=== PATIENT | female | born 1975 | race Caucasian/White ===

== ENCOUNTER 2021-09-30 08:03 | Outpatient (CLI) | payer BC, SELFPAY ==
--- NOTE | 2021-09-30 08:15 | MR_ITS ---
[address] [address] Phone:?[phone] Fax:?[phone] Referring Physician Information: Dee Meyer M.D. [address] [facility] [address] Phone:?[phone] Fax:?[phone] Patient:?Maggi Burrell D.O.B:?1975 Sex:?Female Phone:?[phone] [facility] MRN:?[id number] Exam Date:?09/30/2021 ? EXAM: MRI of the LEFT KNEE, without contrast CLINICAL HISTORY: Left knee pain and sensation of instability. COMPARISONS: None available. TECHNICAL: MR sequences of the left knee: sagittals: PD, PDFS coronals: PD, STIR axials: PD, T2 FS CONTRAST: None SEDATION: None FINDINGS: Bones: No fracture or destructive osseous lesion is seen. 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 Retinacula: The medial and lateral retinacula are intact. Fat pads: The infrapatellar, quadriceps, and prefemoral fat pads are unremarkable. Knee joint: Effusion: Physiologic amount of joint fluid. Popliteal cyst: Tiny popliteal cyst. Intra-articular bodies: None. Medial compartment: Medial meniscus: Intact. Cartilage: Approximately 2.0 cm in AP dimension by 1.0 cm in transverse dimension area of full-thickness chondromalacia over the mid weightbearing portion of the medial femoral condyle with subjacent degenerative subchondral edema-like signal. Lateral compartment: Lateral meniscus: Intact. Cartilage: Intact. Ligaments: Anterior cruciate ligament: Intact. Posterior cruciate ligament: Intact. Medial collateral ligament: Intact. Posterior oblique ligament: Intact. Fibular collateral ligament: Intact. Posterolateral corner: The distal biceps femoris tendon, iliotibial band, popliteus tendon, popliteus muscle, popliteofibular ligament, and arcuate ligament are intact. Posteromedial corner: The semimembranosus and pes anserine tendons are intact. Extensor mechanism: Patellar tendon: Intact. Quadriceps tendon: Intact, without tendinopathy. IMPRESSION: 1. Approximately 2.0 x 1.0 cm area of full-thickness chondromalacia over the mid weightbearing portion of the medial femoral condyle with subjacent degenerative subchondral edema-like signal. 2. Approximately 0.8 x 0.8 cm area of full-thickness chondromalacia over the medial patellar facet with subjacent degenerative subchondral cystic changes. 3. Tiny popliteal cyst. 4. No ligamentous injury or meniscal tear of the left knee. RCB Electronically signed on 09/30/2021 12:08:00 PM by Ba Guadarrama M.D.
== END 2021-09-30 08:04 | disposition home or self-care (01) ==
LOC: MRI 08:04
PROVIDERS: PCP Family Medicine; Visit Provider Family Medicine
DX: M25.562 Pain in left knee (principal); M71.22 Synovial cyst of popliteal space [Baker], left knee; M94.262 Chondromalacia, left knee; M22.42 Chondromalacia patellae, left knee
CPT/HCPCS: 73721

== ENCOUNTER 2022-05-11 10:50 | Outpatient (CLI) | payer BC, SELFPAY ==
--- NOTE | 2022-05-11 11:00 | CRLHL7_ITS ---
For Patients: As a result of the Century Cures Act, medical imaging exams and procedure reports are released immediately into your electronic medical record. You may view this report before your referring provider. If you have questions, please contact your health care provider. CLINICAL HISTORY: PELVIC PAIN TECHNIQUE: 2D esteves scale ultrasound. In addition color Doppler and spectral Doppler analysis was performed of the pelvis using a transabdominal and transvaginal approach. Comparison 05/28/2019 FINDINGS: On transvaginal imaging, the myometrium has a normal uniform echotexture. The uterus measures 9.0 x 5.4 x 6.1 cm. The endometrial lining measures 15 mm in thickness. The right ovary measures 2.8 x 1.0 x 1.8 cm in size and the left ovary measures 3.7 x 1.6 x 1.7 cm. The ovaries demonstrate normal arterial and venous blood flow on color Doppler and spectral Doppler analysis. Hypoechoic left ovarian cyst measuring 2.1 x 1.4 x 2.0 cm. Mild pelvic free fluid. IMPRESSION: 2.1 cm hemorrhagic left ovarian cyst with mild pelvic free fluid. No ovarian torsion or uterine fibroid. Dictated by Srikanth Hooker MD @ 05/11/2022 12:54:48 PM (Electronically Signed)
== END 2022-05-11 10:51 | disposition home or self-care (01) ==
LOC: US 10:51
PROVIDERS: PCP Family Medicine; Visit Provider Obstetrics & Gynecology
DX: R10.2 Pelvic and perineal pain (principal); N83.202 Unspecified ovarian cyst, left side
CPT/HCPCS: 76830; 76856; 93976

== ENCOUNTER 2022-10-02 08:51 | Outpatient (CLI) | payer BC, SELFPAY | END 2022-10-02 08:52 | disposition home or self-care (01) | PROVIDERS: PCP Nurse Practitioner Family; Visit Provider Nurse Practitioner Family | DX: E55.9 Vitamin D deficiency, unspecified (principal); Z13.6 Encounter for screening for cardiovascular disorders; Z13.1 Encounter for screening for diabetes mellitus | CPT/HCPCS: 80048; 80061 ==

== ENCOUNTER 2022-10-10 10:29 | Outpatient (CLI) | payer BC, SELFPAY ==
--- NOTE | 2022-10-10 11:00 | CRLHL7_ITS ---
For Patients: As a result of the Century Cures Act, medical imaging exams and procedure reports are released immediately into your electronic medical record. You may view this report before your referring provider. If you have questions, please contact your health care provider. Indication: RLQ PAIN Technique: Postcontrast CT abdomen and pelvis. 69 cc Isovue 370 intravenous contrast. Please note that all CT scans at this facility use dose modulation, iterative reconstruction, and/or weight-based dosing when appropriate to reduce radiation dose to as low as reasonably achievable. Comparison: Pelvic ultrasound 05/11/2022 Findings: Uterus appears normal. Normal left ovary. There is a right ovarian cyst measuring 1.8 cm. Mild-moderate pelvic free fluid is present. Normal bladder. No bowel obstruction or free air. No abscess. No evidence of appendicitis. Terminal ileum normal. No inflammatory bowel disease. No adenopathy. Normal pancreas and spleen. Normal adrenal glands and kidneys. Gallbladder incompletely distended. No stigmata of cirrhosis. No intrahepatic mass. Lung bases clear. Normal osseous structures. Impression: No bowel obstruction or inflammatory changes. Retroflexed uterus without uterine fibroid. Mild-moderate pelvic free fluid. 1.8 cm right ovarian cyst. No hernia or adenopathy. No renal stone. Gallbladder incompletely distended. No biliary obstruction. Please note that all CT scans at this facility use dose modulation, iterative reconstruction, and/or weight-based dosing when appropriate to reduce radiation dose to as low as reasonably achievable. Dictated by Srikanth Hooker MD @ 10/11/2022 10:49:37 AM (Electronically Signed)
== END 2022-10-10 10:30 | disposition home or self-care (01) ==
LOC: CT 10:30
PROVIDERS: PCP Nurse Practitioner Family; Visit Provider Nurse Practitioner Family
DX: R10.31 Right lower quadrant pain (principal); N83.201 Unspecified ovarian cyst, right side
CPT/HCPCS: 74177; Q9967

== ENCOUNTER 2023-03-28 08:48 | Outpatient (CLI) | payer BC, SELFPAY ==
--- OUTSIDE RECORDS SUMMARY | 2023-03-28 08:53 | XMS_ITS | Referral Summary ---
Author Name Unknown Organization [facility] Address [address] [place] [address] Care Team Providers Care Manager Of Applications Development Name Role Phone Dee Meyer M.D. Primary Care Provider [phone] Source Comments Patient records contain information from all sites at [facility]. For routine questions regarding patient records, call [phone] during business hours, M-F 8:00 AM - 5:00 PM Central Time. Record requests for emergency care only can be directed to [phone] at any time.[facility] Encounters Date Type Department Care Team Description 03/06/2023 9:00 AM BLOOD BANK COORDINATOR - 03/06/2023 11:59 PM BLOOD BANK COORDINATOR Hospital Encounter Department of Laboratory Medicine in [address] [phone] Bin Stearns M.D. Screening Lipid Discharge Disposition: Home or Self Care 01/19/2023 Clinical Communication Department of Family Medicine, [facility], in [address] [address] Bin Stearns M.D. order request 01/19/2023 Clinical Communication Department of Family Medicine, [facility], in [address] [address] Bin Stearns M.D. from Last 3 Months Allergies Active Allergy Reactions Criticality Noted Date Comments Sulfa (Sulfonamide Antibiotics) Other (see comments) 11/08/2012 cerner did not list a reaction Medications Medication Sig Dispensed Refills Start Date End Date Status zinc sulfate (Zinc-220) 220 (50) mg capsule 0 09/22/2019 Active ascorbic acid, vitamin C, (ascorbic acid with sakshi hips) 500 mg tablet Take 500 mg by mouth daily. 0 Active UNABLE TO FIND Med Name: Does take some maldivian herbs. 0 Active cholecalciferol (Vitamin D3) 50 mcg (2,000 Unit) tablet Take 50 mcg by mouth daily. Taking 4,000 units. 0 Active fluticasone propionate (FLONASE) 50 mcg/actuation nasal sprayIndications:Dr eran Vigil Nasal Administer 2 sprays into each nostril daily. 48 g 3 02/13/2020 Active Additional Information Patient taking differently:2 spray each nostrilAs needed, Informant: Self, Reported on 06/17/2020 cetirizine (ZyrTEC) 10 mg tablet Take 1 tablet (10 mg total) by mouth at bedtime. 30 tablet 5 03/01/2020 Active Additional Information Patient taking differently:10 mg oralAs needed, Informant: Self, Reported on 06/17/2020 multivitamin (multivitamin) tablet Take 1 tablet by mouth daily. 0 Active Lactobacillus acidophilus capsule Take 1 capsule by mouth 2 (two) times a day with meals. 0 Active acetylcysteine (NAC) 600 mg capsule Take 600 mg by mouth 2 (two) times a day. 0 Active polyethylene glycol (MIRALAX) 17 gram/dose oral powder Drink 1st portion of prep at 6 PM the evening before. 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 Lipoma 05/24/2020 Overview: Added automatically from request for surgery [id number] Gastroesophageal Reflux Disease 01/23/2020 Overview: Added automatically from request for surgery [id number] Tinnitus Bilateral 09/30/2014 Herpesviral Infection Unspecified 12/19/2013 Anxiety Generalized Disorder 05/03/2013 Overview: Generalized anxiety disorder Migraine Headache 11/26/2009 Overview: Overview: Neurology consult 06/2009 Pain Knee Left Immunizations Name Administration Dates Next Due Influenza (IM) Preservative Free 11/18/2012 Influenza Laiv (Nasal) (Discontinued) 11/11/2014 Influenza, Injectable, Quadrivalent 11/17/2019,1 Influenza, Seasonal, Injectable 12/04/19 12,11/16/2010,11/19/2009,2008,04/05/2007 Influenza, Unspecified 11/18/2019,11/12/2015, SARS-COV-2 (COVID-19) - PFIZ ER (Discontinued)(12 years or older) 05/31/2020,05/05/2020 Td (Adult), adsorbed 11/01/2016 Tdap 05/20/2008 influenza LAIV (Nasal) (2 ye ars through 49 years) 11/11/2014,11/18/2013 influenza vaccine (FLUBLOK) (18 years or older) (PF) 11/13/2018 influenza vaccine quad (FLUZONE/FLUARIX) (6 months and older)(PF) 12/03/2020,11/13/2017 Social History Tobacco Use Types Packs/Day Years Used Date Smoking Tobacco: Never Smokeless Tobacco: Never Alcohol Use Standard Drinks/Week Comments Not Currently 0 (1 standard drink = 0.6 oz pur e alcohol) Humiliation, Afraid, Rape, and Kick questionnair e Answer Date Recorded Within the last year, have y ou been afraid of your partner or ex-partner? No 02/10/2021 Within the last year, have y ou been humiliated or emotionally abused in other ways by your partner or ex-partner? No Within the last year, have y ou been kicked, hit, slapped, or otherwise physically hurt by your partner or ex-partner? No 02/10/2021 Within the last year, have y ou been raped or forced to have any kind of sexual activity by your partner or ex-partner? No 02/10/2021 Social Connection and Isolat ion Panel [NHANES] Answer Date Recorded In a typical week, how many times do you talk on the phone with family, friends, or neighbors? More than three times a week 02/10/2021 How often do you get togethe r with friends or relatives? Once a week 02/10/2021 How often do you attend chur ch or confucianist services? Patient declined 02/10/2021 Do you belong to any clubs o r organizations such as mosque groups, unions, fraternal or athletic groups, or school groups? Yes 02/10/2021 How often do you attend meet ings of the clubs or organizations you belong to? 1 to 4 times per year 02/10/2021 Are you , , di vorced, , never , or living with a partner? 02/10/2021 AUDIT-C Answer Date Recorded Q1: How often do you have a drink containing alc ohol? Never 02/10/2021 Average Number of Drinks Not on file 022 Frequency of Binge Drinking Not on file 07/2021 Overall Financial Resource Strain (CARDIA) Answe r Date Recorded How hard is it for you to pa y for the very basics like food, housing, medical care, and heating? Patient declined 12/26/2022 PHQ-2 Answer Date Recorded PHQ-2 Score 0 02/10/2021 [facility] - Occupational Stress Questionnaire Answer Date Recorded Do you feel stress - tense, restless, nervous, or anxious, or unable to sleep at night because your mind is troubled all the time - these days? Not at all 02/10/2021 Exercise Vital Sign Answer Date Recorde d On average, how many days pe r week do you engage in moderate to strenuous exercise (like a brisk walk)? Patient declined On average, how many minutes do you engage in exercise at this level? Patient declined 12/26/2022 Hunger Vital Sign Answer Date Recorded Within the past 12 months, y ou worried that your food would run out before you got the money to buy more. Patient declined Within the past 12 months, t he food you bought just didn't last and you didn't have money to get more. Patient declined PRAPARE - Transportation Answer Date Re corded In the past 12 months, has l ack of transportation kept you from medical appointments or from getting medications? No 12/07 In the past 12 months, has l ack of transportation kept you from meetings, work, or from getting things needed for daily living? No 12/26/2022 Nutrition Answer Date Recorded Nutrition: EVOO Fat Source Yes 12/26 On average, how many serving s of fruits and vegetables do you eat per day (serving size is equal to 1 cup or approximately the size of a tennis ball)? 0-2 12/26/2022 Dental Answer Date Recorded Dental: Regular Dentist Yes 04/01/19 Employment Answer Date Recorded Employment status Unemployed/not in e paid workforce and NOT seeking employment 12/26/2022 Housing Stability Answer Date Recorded What is your living situation today? I have a [facility] place to live 12/26/2022 Education Answer Date Recorded What is the highest level of school you have completed or the highest degree you have received? Bachelor's degree (e.g., BA, AB, BS) 10/15/2019 Sex and Gender Information Value Date Recorded Sex Assigned at Female 12/17/2016 10:20 PM BLOOD BANK COORDINATOR Gender Identity Female 12/17/2016 10:20 PM BLOOD BANK COORDINATOR Sexual Orientation Straight 12/17/2016 10 :20 PM BLOOD BANK COORDINATOR Last Filed Vital Signs Vital Sign Reading Time Taken Comments Blood Pressure 110/73 02/10/2021 1:22 PM BLOOD BANK COORDINATOR Pulse 75 02/10/2021 1:22 PM BLOOD BANK COORDINATOR Temperature 36.6 ??C (97.9 ??F) 02/10/2021 1:22 PM CS T Respiratory Rate 14 06/18/2020 9:00 AM CDT Oxygen Saturation 99% 02/10/2021 1:22 PM BLOOD BANK COORDINATOR Inhaled Oxygen Concentration - - Weight 63 kg (138 lb 12.8 oz) 02/10/2021 1:22 PM BLOOD BANK COORDINATOR Height 157.5 cm (5' 2.01) 06/18/2020 7:36 AM CD T Body Mass Index 25.38 06/18/2020 7:36 AM CDT Plan of Treatment Not on file Procedures Procedure Name Priority Date/Time Associated Diagnosis Comments LIPID PANEL, S Routine 03/06/2023 9:11 AM BLOOD BANK COORDINATOR Screening Lipid from Last 3 Months Results * (ABNORMAL) Lipid Panel (03/06/2023 9:11 AM [facility]) Triglycerides 70 mg/dL 03/06/2023 9:37 AM [facility] Comment: ----REFERENCE VALUE---- Normal: <150 mg/dL Borderline High: 150-199 mg/dL High: 200-499 mg/dL Very High: > or =500 mg/dL Cholesterol, Total 250(H) mg/dL 2023 9:37 AM [facility] Comment: ----REFERENCE VALUE---- Desirable: < 200 mg/dL Borderline High: 200 - 239 mg/dL High: > or = 240 mg/dL Cholesterol, LDL, Calculated 148(H) mg/dL 03/06/2023 9:37 AM [facility] Comment: ----REFERENCE VALUE---- Desirable: <100 mg/dL Above Desirable: 100-129 mg/dL Borderline High: 130-159 mg/dL High: 160-189 mg/dL Very High: >=190 mg/dL ----ADDITIONAL INFORMATION---- LDL cholesterol calculated using the [place]/NIH equation. Cholesterol, HDL 90 >=50 mg/dL 03/06/19 9:37 AM [facility] Cholesterol, Non-HDL, Calculated 160(H) mg/dL 03/06/2023 9:37 AM [facility] Comment: ----REFERENCE VALUE---- Desirable: <130 mg/dL Above Desirable: 130-159 mg/dL Borderline High: 160-189 mg/dL High: 190-219 mg/dL Very High: > or =220 mg/dL Fasting (8 HR or more) Yes 03/06/2023 9:14 AM [facility] Blood (Blood, Venous) 03/06/2023 9:11 AM BLOOD BANK COORDINATOR 03/06/2023 9:14 AM [facility] Bin Stearns M.D. LAB BLOOD ADD-ON Performing Organization Address City/State/[place] Co de Phone Number [facility]- [address] [address], [facility] in [address] [place] [address] from Last 3 Months Advance Directives For more information, please contact: [phone] Latest Code Status on File Code Status Date Activated Date Inactivated Comments Full Code 06/18/2020 7:05 AM 06/18/2020 12:17 PM Question Answer Comments Full Code: Discussed Code Status History Code Status Date Activated Date Inactivated Comments Full Code 01/29/2020 11:25 AM 01/29/2020 2:49 PM Question Answer Comments Full Code: Discussed Care Teams Manager Of Applications Development Relationship Specialty Start Date End Date Dee Meyer M.D. [address] [place] [address] [place] [id number] PCP - General Family Medicine 01/19/23
--- OUTSIDE RECORDS SUMMARY | 2023-03-28 08:53 | XMS_ITS ---
Author Name Unknown Organization [facility] Address [address] [place] [address] Care Team Providers Care Internal Corrosion Specialist Name Role Phone Unavailable Unavailable Unavailable Surgery Details Not on file Complications Check Surgery Details section. Procedure Estimated Blood Loss Check Surgery Details section. Procedure Findings Check Surgery Details section. Procedure Specimens Taken Check Surgery Details section.
--- OUTSIDE RECORDS SUMMARY | 2023-03-28 08:53 | XMS_ITS | Clinical Summary ---
Author Name Unknown Organization [facility] Address [address] [place] [address] Care Team Providers Care Thermodynamics Professor Name Role Phone Dee Meyer M.D. Primary Care Provider Source Comments Patient records contain information from all sites at [facility]. For routine questions regarding patient records, call [phone] during business hours, M-F 8:00 AM - 5:00 PM Central Time. Record requests for emergency care only can be directed to [phone] at any time.[facility] Allergies Active Allergy Reactions Criticality Noted Date Comments Sulfa (Sulfonamide Antibiotics) Other (see comments) 11/08/2012 mariaelenaner did not list a reaction Medications Medication Sig Dispensed Refills Start Date End Date Status zinc sulfate (Zinc-220) 220 (50) mg capsule 0 09/22/2019 Active ascorbic acid, vitamin C, (ascorbic acid with sakshi hips) 500 mg tablet Take 500 mg by mouth daily. 0 Active UNABLE TO FIND Med Name: Does take some micronesian herbs. 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 Lipoma 05/24/2020 Overview: Added automatically from request for surgery [id number] Gastroesophageal Reflux Disease 01/23/2020 Overview: Added automatically from request for surgery [id number] Tinnitus Bilateral 09/30/2014 Herpesviral Infection Unspecified 12/19/2013 Anxiety Generalized Disorder 05/03/2013 Overview: Generalized anxiety disorder Migraine Headache 11/26/2009 Overview: Overview: Neurology consult 06/2009 Pain Knee Left Encounters Date Type Department Care Team Description 03/06/2023 9:00 AM PAPER RULER - 03/06/2023 11:59 PM PAPER RULER Hospital Encounter Department of Laboratory Medicine in [address] [phone] Bin Stearns M.D. Screening Lipid Discharge Disposition: Home or Self Care 01/19/2023 Clinical Communication Department of [facility], [facility], [address] [phone] Bin Stearns M.D. order request 01/19/2023 Clinical Communication Department of Family Medicine, [facility], in [address] [phone] Bin Stearns M.D. from Last 3 Months Immunizations Name Administration Dates Next Due Influenza [...] quad (FLUZONE/FLUARIX) (6 months and older)(PF) 12/03/2020,11/13/2017 Family History Medical History Relation Name Comments Depression Brother Hypothyroidism Brother Atrial fibrillation Father Coronary artery disease Father Hypothyroidism Mother Osteoarthritis Mother Breast cancer Mother's Sister Anxiety disorder Sister Depression Sister Hypothyroidism Sister Relation Name Status Comments Brother Father Mother Mother's Sister Sister Social History Tobacco Use Types Packs/Day Years [...] 02/10/2021 How often do you attend chur or orthodox services? Patient declined 02/10/2021 Do you belong to any clubs o r organizations such as episcopalian groups, unions, fraternal or athletic groups, or [...] Answer Date Recorded PHQ-2 Score 0 02/10/2021 [facility] - Occupational [...] your living situation today? I have a [facility] place to live 12/26/2022 Education Answer Date Recorded What is the highest level of school you have completed or the highest degree you have received? Bachelor's degree (e.g., BA, AB, BS) 10/15/2019 Sex and Gender Information Value Date Recorded Sex Assigned at Female 12/17/2016 10:20 PM PAPER RULER Gender Identity Female 12/17/2016 10:20 PM PAPER RULER Sexual Orientation Straight 12/17/2016 10 :20 PM PAPER RULER Last Filed Vital Signs Vital Sign Reading Time Taken Comments Blood Pressure 110/73 02/10/2021 1:22 PM PAPER RULER Pulse 75 02/10/2021 1:22 PM PAPER RULER Temperature 36.6 ??C (97.9 ??F) 02/10/2021 1:22 PM CS T Respiratory Rate 14 06/18/2020 9:00 AM CDT Oxygen Saturation 99% 02/10/2021 1:22 PM PAPER RULER Inhaled Oxygen Concentration - - Weight 63 kg (138 lb 12.8 oz) 02/10/2021 1:22 PM PAPER RULER Height 157.5 cm (5' 2.01) 06/18/2020 7:36 AM CD T Body Mass Index 25.38 06/18/2020 7:36 AM CDT Plan of Treatment Health Maintenance Due Date Last Done Comments CT Colonography 1976 Cologuard 1976 Colonoscopy 1976 Colorectal Cancer Screening 1976 FIT 1976 Hepatitis B Vaccines (1 of 3 - 3-dose series) 1976 Hepatitis C Screening 1976 COVID-19 Vaccine (3 - season) 2022 05/31/2020, 05/05/2020 Gastroscopy (upper endoscopy) 01/28/2023 01/29/2020 Depression Screening (Annual PHQ-2) 02/05/2023 Fasting Glucose for Diabetes Screening 06/18/2023 06/17/2020, 06/17/2014 Mammogram 12/23/2023 12/22/2022, 12/06, 12/20/2020, Additional history exists Lipid (Cholesterol) Screening 03/06/2024 03/06/2023, 08/10/2021, 12/29/2015, Additional history exists Cervical Cancer Screening 11/14/20242021, 04/10/2018, 04/10/2018, Additional history exists DTaP,Tdap,and Td Vaccines (3 - Td or Tdap) 11/01/2026 11/01/2016, 05/20/2008 HIV Screening Addressed 05/12/2011 (Perf ormed elsewhere) Overridden with the intention of not completing the topic Influenza Vaccine Completed 12/16/2022, , 11/18/2019, Additional history exists Pneumococcal vaccine (0-64 years) Aged Out No longer eligible b ased on patient's age to complete this topic Procedures Procedure Name Priority Date/Time Associated Diagnosis Comments LIPID PANEL, S Routine 03/06/2023 9:11 AM PAPER RULER Screening Lipid from Last 3 Months Results * (ABNORMAL) Lipid Panel (03/06/2023 9:11 AM PAPER RULER) Triglycerides 70 mg/dL 03/06/2023 9:37 AM PAPER RULER [facility] Comment: ----REFERENCE VALUE---- Normal: <150 mg/dL Borderline High: 150-199 mg/dL High: 200-499 mg/dL Very High: > or =500 mg/dL Cholesterol, Total 250(H) mg/dL 2023 9:37 AM PAPER RULER [facility] Comment: ----REFERENCE VALUE---- Desirable: < 200 mg/dL Borderline High: 200 - 239 mg/dL High: > or = 240 mg/dL Cholesterol, LDL, Calculated 148(H) mg/dL 03/06/2023 9:37 AM PAPER RULER [facility] Comment: ----REFERENCE VALUE---- Desirable: <100 mg/dL Above Desirable: 100-129 mg/dL Borderline High: 130-159 mg/dL High: 160-189 mg/dL Very High: >=190 mg/dL ----ADDITIONAL INFORMATION---- LDL cholesterol calculated using the Nj/NIH equation. Cholesterol, HDL 90 >=50 mg/dL 03/06/19 9:37 AM PAPER RULER [facility] Cholesterol, Non-HDL, Calculated 160(H) mg/dL 03/06/2023 9:37 AM PAPER RULER [facility] Comment: ----REFERENCE VALUE---- Desirable: <130 mg/dL Above Desirable: 130-159 mg/dL Borderline High: 160-189 mg/dL High: 190-219 mg/dL Very High: > or =220 mg/dL Fasting (8 HR or more) Yes 03/06/2023 9:14 AM PAPER RULER [facility] Blood (Blood, Venous) 03/06/2023 9:11 AM PAPER RULER 03/06/2023 9:14 AM PAPER RULER Bin Stearns M.D. LAB BLOOD ADD-ON [facility] [address] [place] [phone], [facility] CNFL [facility] in [address] [address] from Last 3 Months Advance Directives For more information, please contact: [phone] Latest Code Status on File Code Status Date Activated Date Inactivated Comments Full Code 06/18/2020 7:05 AM 06/18/2020 12:17 PM Question Answer Comments Full Code: Discussed Code Status History Code Status Date Activated Date Inactivated Comments Full Code 01/29/2020 11:25 AM 01/29/2020 2:49 PM Question Answer Comments Full Code: Discussed Care Teams Thermodynamics Professor Relationship Specialty Start Date End Date Dee Meyer M.D. [id number] [place] [phone] PCP - General Family Medicine 01/19/23
--- OUTSIDE RECORDS SUMMARY | 2023-03-28 08:53 | XMS_ITS | Encounter Summary ---
Author Name Unknown Organization [facility] Address [address] [place] [address] Care Team Providers Care Visual Merchandising Assistant Name Role Phone Dee Meyer M.D. Primary Care Provider Encounter Details Date Type Department Care Team (Latest Contact Info) Description 03/06/2023 9:00 AM MATERIALS DIRECTOR - 03/06/2023 11:59 PM [facility] Hospital Encounter Department of Laboratory Medicine in [address] [phone] Bin Stearns M.D. [address] [place] [phone] Screening Lipid Discharge Disposition: Home or Self Care Social History Tobacco Use Types Packs/Day Years [...] How often do you attend chur or mandaeism services? Patient declined 02/10/2021 Do you belong to any clubs o r organizations such as methodist groups, unions, fraternal or athletic groups, or [...] Answer Date Recorded PHQ-2 Score 0 02/10/2021 [facility] Questionnaire Answer [...] Answer Date Recorded Employment status Unemployed/not in th e paid workforce and NOT seeking employment 12/26/2022 Housing Stability Answer Date Recorded What is your living situation today? I have a [facility] place to live 12/26/2022 Education Answer Date Recorded What is the highest level of school you have completed or the highest degree you have received? Bachelor's degree (e.g., BA, AB, BS) 10/15/2019 Sex and Gender Information Value Date Recorded Sex Assigned at Female 12/17/2016 10:20 PM MATERIALS DIRECTOR Gender Identity Female 12/17/2016 10:20 PM MATERIALS DIRECTOR Sexual Orientation Straight 12/17/2016 10 :20 PM MATERIALS DIRECTOR documented as of this encounter Medications at Time of Discharge Medication Sig Dispensed Refills Start Date End Date acetylcysteine (NAC) 600 mg capsule Take 600 mg by mouth 2 (two) times a day. 0 ascorbic acid, vitamin C, (ascorbic acid with sakshi hips) 500 mg tablet Take 500 mg by mouth daily. 0 cetirizine (ZyrTEC) 10 mg tablet Take 1 tablet (10 mg total) by mouth at bedtime. 30 tablet 5 03/01/2020 cholecalciferol (Vitamin D3) 50 mcg (2,000 Unit) tablet Take 50 mcg by mouth daily. Taking 4,000 units. 0 fluticasone propionate (FLONASE) 50 mcg/actuation nasal sprayIndications:Drip Post Nasal Administer 2 sprays into each nostril daily. 48 g 3 02/13/2020 Lactobacillus acidophilus capsule Take 1 capsule by mouth 2 (two) times a day with meals. 0 multivitamin (multivitamin) tablet Take 1 tablet by mouth daily. 0 polyethylene glycol (MIRALAX) 17 gram/dose oral powder Drink 1st portion of prep at 6 PM the evening before. 2nd portion must be started 4 hours before and finished 2 hours prior to report time 238 g 0 12/28/2021 UNABLE TO FIND Med Name: Does take some polish herbs. 0 zinc sulfate (Zinc-220) 220 (50) mg capsule 0 09/22/2019 documented as of this encounter Plan of Treatment Not on file documented as of this encounter Procedures Procedure Name Priority Date/Time Associated Diagnosis Comments LIPID PANEL, S Routine 03/06/2023 9:11 AM MATERIALS DIRECTOR Screening Lipid documented in this encounter Results * (ABNORMAL) Lipid Panel (03/06/2023 9:11 AM MATERIALS DIRECTOR) Triglycerides 70 mg/dL 03/06/2023 9:37 AM [facility] Comment: ----REFERENCE VALUE---- Normal: <150 mg/dL Borderline High: 150-199 mg/dL High: 200-499 mg/dL Very High: > or =500 mg/dL Cholesterol, Total 250(H) mg/dL 2023 9:37 AM [facility] Comment: ----REFERENCE VALUE---- Desirable: < 200 mg/dL Borderline High: 200 - 239 mg/dL High: > or = 240 mg/dL Cholesterol, LDL, Calculated 148(H) mg/dL 03/06/2023 9:37 AM [facility] Comment: ----REFERENCE VALUE---- Desirable: <100 mg/dL Above Desirable: 100-129 mg/dL Borderline High: 130-159 mg/dL High: 160-189 mg/dL Very High: >=190 mg/dL ----ADDITIONAL INFORMATION---- LDL cholesterol calculated using the Nj/NIH equation. Cholesterol, HDL 90 >=50 mg/dL 03/06/19 9:37 AM [facility] Cholesterol, Non-HDL, Calculated 160(H) mg/dL 03/06/2023 9:37 AM [facility] Comment: ----REFERENCE VALUE---- Desirable: <130 mg/dL Above Desirable: 130-159 mg/dL Borderline High: 160-189 mg/dL High: 190-219 mg/dL Very High: > or =220 mg/dL Fasting (8 HR or more) Yes 03/06/2023 9:14 AM MATERIALS DIRECTOR [facility] Blood (Blood, Venous) 03/06/2023 9:11 AM MATERIALS DIRECTOR 03/06/2023 9:14 AM MATERIALS DIRECTOR Bin Stearns M.D. LAB BLOOD ADD-ON [facility] [address] [place] [phone], [facility] CNFL [facility] in [address] [address] documented in this encounter Visit Diagnoses Diagnosis Screening Lipid documented in this encounter Additional Health Concerns Assessment Noted Time PHQ-9 Depression Total Score: 3 06/18/19 15 2:16 PM CDT documented as of this encounter Care Teams Visual Merchandising Assistant Relationship Specialty Start Date End Date Dee Meyer M.D. [address] [place] [phone] PCP - General Family Medicine 01/19/23 documented as of this encounter
--- OUTSIDE RECORDS SUMMARY | 2023-03-28 08:54 | XMS_ITS | Encounter Summary ---
Author Name Unknown Organization [facility] Address [address] [place] [address] Care Team Providers Care Elastic Tape Inserter Name Role Phone Bin Stearns M.D. Primary Care Provider [phone] Encounter Details Date Type Department Care Team (Late st Contact Info) Description 12/12/2022 Orders Only [facility] PCP TH MNT Bin Stearns M.D. [address] [place] [phone] Screening Lipid Social History Tobacco Use Types Packs/Day Years [...] often do you attend chur ch or holiness services? Patient declined 02/10/2021 Do you belong to any clubs o r organizations such as yazdanism groups, unions, fraternal or athletic groups, or [...] like food, housing, medical care, and heating? Not hard at all 02/10/2021 PHQ-2 Answer Date Recorded PHQ-2 Score 0 02/10/2021 [facility] of Occupat ional Health - Occupational Stress [...] to strenuous exercise (like a brisk walk)? 4 days 02/10/2021 On average, how many minutes do you engage in exercise at this level? 40 min 02/10/2021 Hunger Vital Sign Answer Date Recorded Within the past 12 months, y ou worried that your food would run out before you got the money to buy more. Never true 02/10/19 22 Within the past 12 months, t he food you bought just didn't last and you didn't have money to get more. Never true 02/10/2021 PRAPARE - Transportation Answer Date Re corded In the past 12 months, has l ack of transportation kept you from medical appointments or from getting medications? No 07/2021 In the past 12 months, has l ack of transportation kept you from meetings, work, or from getting things needed for daily living? No 02/10/2021 Housing Stability Vital Sign Answer Remi e Recorded In the last 12 months, was t here a time when you were not able to pay the mortgage or rent on time? No 02/10/2021 In the last 12 months, how many places have you lived? 1 02/10/2021 In the last 12 months, was t here a time when you did not have a steady place to sleep or slept in a chcf (including now)? No 02/10/2021 Nutrition Answer Date Recorded Nutrition: EVOO Fat Source Yes 02/10 On average, how many serving s of fruits and vegetables do you eat per day (serving size is equal to 1 cup or approximately the size of a tennis ball)? 2-3 02/10/2021 Dental Answer Date Recorded Dental: Regular Dentist Yes 04/01/19 21 Employment Answer Date Recorded Employment status Unemployed/not in e paid workforce and NOT seeking employment 02/10/2021 Education Answer Date Recorded What is the highest level of school you have completed or the highest degree you have received? Bachelor's degree (e.g., BA, AB, BS) 10/15/2019 Sex and Gender Information Value Date Recorded Sex Assigned at Female 12/17/2016 10:20 PM RECREATION PROFESSOR Gender Identity Female 12/17/2016 10:20 PM RECREATION PROFESSOR Sexual Orientation Straight 12/17/2016 10 :20 PM RECREATION PROFESSOR documented as of this encounter Plan of Treatment Not on file documented as of this encounter Results * (ABNORMAL) Lipid Panel (03/06/2023 9:11 AM RECREATION PROFESSOR) Pathologist [facility] Triglycerides 70 mg/dL 03/06/2023 9:37 AM RECREATION PROFESSOR [facility] Comment: ----REFERENCE VALUE---- Normal: <150 mg/dL Borderline High: 150-199 mg/dL High: 200-499 mg/dL Very High: > or =500 mg/dL Cholesterol, Total 250(H) mg/dL 2023 9:37 AM RECREATION PROFESSOR [facility] Comment: ----REFERENCE VALUE---- Desirable: < 200 mg/dL Borderline High: 200 - 239 mg/dL High: > or = 240 mg/dL Cholesterol, LDL, Calculated 148(H) mg/dL 03/06/2023 9:37 AM RECREATION PROFESSOR [facility] Comment: ----REFERENCE VALUE---- Desirable: <100 mg/dL Above Desirable: 100-129 mg/dL Borderline High: 130-159 mg/dL High: 160-189 mg/dL Very High: >=190 mg/dL ----ADDITIONAL INFORMATION---- LDL cholesterol calculated using the Nj/NIH equation. Cholesterol, HDL 90 >=50 mg/dL 03/06/19 9:37 AM RECREATION PROFESSOR [facility]FL Cholesterol, Non-HDL, Calculated 160(H) mg/dL 03/06/2023 9:37 AM RECREATION PROFESSOR [facility] Comment: ----REFERENCE VALUE---- Desirable: <130 mg/dL Above Desirable: 130-159 mg/dL Borderline High: 160-189 mg/dL High: 190-219 mg/dL Very High: > or =220 mg/dL Fasting (8 HR or more) Yes 03/06/2023 9:14 AM RECREATION PROFESSOR CNFL Blood (Blood, Venous) 03/06/2023 9:11 AM RECREATION PROFESSOR 03/06/2023 9:14 AM RECREATION PROFESSOR Bin Stearns M.D. LAB BLOOD ADD-ON Performing Organization Address City/State/[facility] Co de Phone Number [facility] [address] [place] [phone], [facility] CNFL [facility] in [address] [address] documented in this encounter Visit Diagnoses Diagnosis Screening Lipid documented in this encounter Additional Health Concerns Assessment Noted Time PHQ-9 Depression Total Score: 3 06/18/19 15 2:16 PM CDT documented as of this encounter Care Teams Elastic Tape Inserter Relationship Specialty Start Date End Date Bin Stearns M.D. [address] [place] [phone] PCP - General 11/17/16 01/18/23 documented as of this encounter
--- OUTSIDE RECORDS SUMMARY | 2023-03-28 08:54 | XMS_ITS | Encounter Summary ---
Author Name Unknown Organization [facility] Address [address] [place] [address] Care Team Providers Care Lumber Trimmer Name Role Phone Bin Stearns M.D. Primary Care Provider [phone]- [phone] Reason for Referral * Outpatient (Routine) - Closed Specialty Diagnoses / Procedures Referred By Hoa anglin Referred To Contact Diagnoses Screening Mammogram Breast Cancer Procedures BI Breast Screening Bilateral with Tomosynthesis Bin Stearns M.D. [address] [place] [phone] [facility] Region Referral ID Status Reason Start Date Expiration Date Visits Re quested Visits Authorized [id number] Closed 12/07/2022 12/07/2023 1 1 O GAME CREATOR * Outpatient (Routine) - Closed Specialty Diagnoses / Procedures Referred By Hoa anglin Referred To Contact Diagnoses Screening Mammogram Breast Cancer Procedures BI Breast Screening Bilateral with TomosynBin Farris M.D. [address] [place] [phone] [facility] Region Referral ID Status Reason Start Date Expiration Date Visits Re quested Visits Authorized [id number] Closed 12/07/2022 12/07/2023 1 1 Reason for Visit * Outpatient (Routine) - Closed Specialty Diagnoses / Procedures Referred By Hoa anglin Referred To Contact Diagnoses Screening Mammogram Breast Cancer Procedures BI Breast Screening Bilateral with Tomosynthesis Bin Stearns M.D. [address] [place] [phone] [facility] Referral ID Status Reason Start Date Expiration Date Visits Re quested Visits Authorized [id number] Closed 12/07/2022 12/07/2023 1 1 Encounter Details Date Type Department Care Team (Latest Contact Info) Description 12/22/2022 9:45 AM VIDEO GAME CREATOR - 12/22/2022 11:59 PM VIDEO GAME CREATOR Hospital Encounter Department of Radiology in [address] [phone] Bin Stearns M.D. [address] [place] [phone] Screening Mammogram Breast Cancer Discharge Disposition: Home or Self Care Social [...] How often do you attend chur or congregational services? Patient declined 02/10/2021 Do you belong to any clubs o r organizations such as anabaptist groups, unions, fraternal or athletic groups, or [...] Answer Date Recorded PHQ-2 Score 0 02/10/2021 [facility] of Occupat ional [facility] - Occupational Stress Questionnaire Answer Date Recorded [...] place to sleep or slept in a halfway (including now)? No 02/10/2021 Nutrition Answer Date Recorded Nutrition: EVOO Fat Source Yes 02/10 On average, how many serving s of fruits and vegetables do you eat per day (serving size is equal to 1 cup or approximately the size of a tennis ball)? 2-3 02/10/2021 Dental Answer Date Recorded Dental: Regular Dentist Yes 04/01/19 Employment Answer Date Recorded Employment status Unemployed/not in [facility] paid workforce and NOT seeking employment 02/10/2021 Education Answer Date Recorded What is the highest level of school you have completed or the highest degree you have received? Bachelor's degree (e.g., BA, AB, BS) 10/15/2019 Sex and Gender Information Value Date Recorded Sex Assigned at Female 12/17/2016 10:20 PM VIDEO GAME CREATOR Gender Identity Female 12/17/2016 10:20 PM VIDEO GAME CREATOR Sexual Orientation Straight 12/17/2016 10 :20 PM VIDEO GAME CREATOR documented as of this encounter Medications at [...] TO FIND Med Name: Does take some divehi herbs. 0 zinc sulfate (Zinc-220) 220 (50) mg capsule 0 09/22/2019 documented as of this encounter Plan of Treatment Not on file documented as of this encounter Procedures Procedure Name Priority Date/Time Associated Diagnosis Comments BI BREAST SCREENING BILATERAL WITH TOMOSYNTHESIS RAD - Routine (most inpatients and all outpatients) 12/22/2022 9:57 AM VIDEO GAME CREATOR Screening Mammogram Breast Cancer documented in this encounter Results * BI Breast Screening Bilateral with Tomosynthesis (12/22/2022 9:57 AM VIDEO GAME CREATOR) Anatomical Region Laterality Modality Breast, Breast Imaging RST L OS, Breast Imaging ARZ LOS, Breast Imaging FLA LOS Bilateral Mammography 12/22/2022 11:0 9 AM VIDEO GAME CREATOR Impressions 12/22/2022 11:13 AM VIDEO GAME CREATOR Negative. RECOMMENDATION: ??Annual Screening Mammogram ASSESSMENT: ??BI-RADS: 1: Negative. Narrative 12/22/2022 11:13 AM VIDEO GAME CREATOR EXAM: ??BI BREAST SCREENING BILATERAL WITH TOMOSYNTHESIS Current study was evaluated with a Computer Aided Detection (CAD) system. INDICATION: ??Screening mammogram. COMPARISON: ??Prior exam(s) were available and reviewed for comparison. DENSITY: ??d. The breast(s) are extremely dense, which lowers the sensitivity of mammography. FINDINGS: ??No mammographic findings of malignancy. Procedure Note Jodi Ray D.O. - 12/22/2022 EXAM: BI BREAST SCREENING BILATERAL WITH TOMOSYNTHESIS Current study was evaluated with a Computer Aided Detection (CAD) system. INDICATION: Screening mammogram. COMPARISON: Prior exam(s) were available and reviewed for comparison. DENSITY: d. The breast(s) are extremely dense, which lowers thesensitivity of mammography. FINDINGS: No mammographic findings of malignancy. IMPRESSION: Negative. RECOMMENDATION: Annual Screening Mammogram ASSESSMENT: BI-RADS: 1: Negative. Bin Stearns M.D. IMG BI PROCEDURES documented in this encounter Visit Diagnoses Diagnosis Screening Mammogram Breast Cancer documented in this encounter Additional Health Concerns Assessment Noted Time PHQ-9 Depression Total Score: 3 06/18/19 15 2:16 PM CDT documented as of this encounter Care Teams Lumber Trimmer Relationship Specialty Start Date End Date Bin Stearns M.D. [address] [place] [phone] PCP - General 11/17/16 01/18/23 documented as of this encounter
--- OUTSIDE RECORDS SUMMARY | 2023-03-28 08:54 | XMS_ITS | Encounter Summary ---
Author Name Unknown Organization [facility] Address [address] [place] [address] Care Team Providers Care Tower Equipment Repairer Name Role Phone Dee Meyer M.D. Primary Care Provider [phone] Encounter Details Date Type Department Care Team (Late st Contact Info) Description 01/19/2023 Clinical Communication Department of Family Medicine, [facility], in [address] [phone] Bin Stearns M.D. [address] [place] [phone] Social History Tobacco Use Types Packs/Day Years [...] often do you attend chur ch or latter day services? Patient declined 02/10/2021 Do you belong to any clubs o r organizations such as confucianism groups, unions, fraternal or athletic groups, or [...] Answer Date Recorded PHQ-2 Score 0 02/10/2021 [facility] - Occupational [...] your living situation today? I have a [facility] place to live 12/26/2022 Education Answer Date Recorded What is the highest level of school you have completed or the highest degree you have received? Bachelor's degree (e.g., BA, AB, BS) 10/15/2019 Sex and Gender Information Value Date Recorded Sex Assigned at Female 12/17/2016 10:20 PM BUSINESS SYSTEM CONSULTANT Gender Identity Female 12/17/2016 10:20 PM BUSINESS SYSTEM CONSULTANT Sexual Orientation Straight 12/17/2016 10 :20 PM BUSINESS SYSTEM CONSULTANT documented as of this encounter Plan of Treatment Not on file documented as of this encounter Visit Diagnoses Not on filedocumented in this encounter Additional Health Concerns Assessment Noted Time PHQ-9 Depression Total Score: 3 06/18/19 15 2:16 PM CDT documented as of this encounter Care Teams Tower Equipment Repairer Relationship Specialty Start Date End Date Dee Meyer M.D. [address] [place] [phone] PCP - General Family Medicine 01/19/23 documented as of this encounter
--- OUTSIDE RECORDS SUMMARY | 2023-03-28 08:54 | XMS_ITS | Encounter Summary ---
Author Name Unknown Organization [facility] Address [address] [place] [address] Care Team Providers Care Speeder Machine Operator Name Role Phone Dee Meyer M.D. Primary Care Provider [phone] Reason for Referral * MRI/CAT/PET Scan (Routine) - Pending Review Specialty Diagnoses / Procedures Referred By Hoa anglin Referred To Contact Radiology Diagnoses Hyperlipidemia Procedures CT Cardiac Scoring without IV Contrast Dee Meyer M.D. [address] [place] [phone] [facility] Referral ID Status Reason Start Date Expiration Date V isits Requested Visits Authorized [id number] Pending Review 01/19/2023 01/19/2024 1 1 OR DIE DRAWING CHECKER Reason for Visit * Reason Onset Date Comments order request 01/19/2023 Encounter Details Date Type Department Care Team (Late st Contact Info) Description 01/19/2023 Clinical Communication Department of Family Medicine, [facility], in [address] [phone] Bin Stearns M.D. [address] [place] [phone] order request Social History Tobacco Use Types Packs/Day Years [...] week 02/10/2021 How often do you attend [facility] or latter day services? Patient declined 02/10/2021 Do you belong to any clubs o r organizations such as jewish groups, unions, fraternal or athletic groups, or [...] Answer Date Recorded PHQ-2 Score 0 02/10/2021 [facility] - Occupational Stress [...] your living situation today? I have a [facility] place to live 12/26/2022 Education Answer Date Recorded What is the highest level of school you have completed or the highest degree you have received? Bachelor's degree (e.g., BA, AB, BS) 10/15/2019 Sex and Gender Information Value Date Recorded Sex Assigned at Female 12/17/2016 10:20 PM TOOL OR DIE DRAWING CHECKER Gender Identity Female 12/17/2016 10:20 PM TOOL OR DIE DRAWING CHECKER Sexual Orientation Straight 12/17/2016 10 :20 PM TOOL OR DIE DRAWING CHECKER documented as of this encounter Plan of Treatment Scheduled Orders Name Type Priority Associated Diagnoses Orde r Schedule CT Cardiac Scoring without IV Contrast Imaging RAD - Routine (most inpatients and all outpatients) Hyperlipidemia Expected: 01/19/2023 (Approximate), Expires: 04/19/2024 documented as of this encounter Visit Diagnoses Diagnosis Hyperlipidemia- Primary documented in this encounter Additional Health Concerns Assessment Noted Time PHQ-9 Depression Total Score: 3 06/18/19 15 2:16 PM CDT documented as of this encounter Care Teams Speeder Machine Operator Relationship Specialty Start Date End Date Dee Meyer M.D. [address] [place] [phone] PCP - General Family Medicine 01/19/23 documented as of this encounter
--- OUTSIDE RECORDS SUMMARY | 2023-03-28 08:54 | XMS_ITS | Clinical Summary ---
Author Name Unknown Organization [facility] Address [place], [place] [address] Care Team Providers Care Communication Spec Name Role Phone Pcp, No Primary Care Provider Unavailabl e Allergies Active Allergy Reactions Criticality Noted Date Comments Sulfa (Sulfonamide Antibiotics) 02/05 Medications Medication Sig Dispensed Refills Start Date End Date Status albuterol HFA (ProAir HFA) 90 mcg/actuation inhalerIndications:Asth ma, exercise induced Inhale 2 Puffs by mouth every 4 hours if needed for Wheezing 1st choice. 1 Each 1 12/27/2022 Active ciprofloxacin HCl (CILOXAN) 0.3 % ophthalmic solutionIndications:Oth er mucopurulent conjunctivitis of right eye Place 1 Drop into right eye every 2 hours. 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 Counseling about natural family planning 014 Anxiety state, unspecified 02/20/2012 Adjustment disorder with mixed anxiety and depre ssed mood 11/26/2009 Migraine 11/26/2009 Overview: Neurology consult 06/2009 Resolved Problems Problem Noted Date Diagnosed Date Resolved Date Supervision of other normal 08/18/2011 01/04/2012 Encounters Date Type Department Care Team Description 12/27/2022 9:10 AM STONE DERRICKMAN AND RIGGER Office Visit [facility] [address] [place] [address] Markus Prince MD Pharyngitis (X 8 days); Eye Problem (Bilateral, redness, discharge, grainy) 12/27/2022 Travel from Last 3 Months Immunizations Name Administration Dates Next Due Influenza Virus, Unspecified 11/18/2019, 11/12/2015,11/03/2015,2013 Influenza, IIV3 (Age 6-35 mos) 11/18/2012 Influenza, IIV3 (Age >=3 years) 11/19/19 13,12/04/2011,11/16/2010,2009,11/12/2008,04/05/2007 Influenza, IIV4 12/03/2020,11/13/2017,11/11/2014 Influenza, IIV4 (=>6mos) MDV 11/17/2019,11/21/19 17 Influenza, Live, Intranasal Laiv3 11/11/2014 Influenza, RIV3 (Age =>18 Years) 11/13/2018 Influenza,CCIIV4 PRESERV FREE 12/16/2022 Influenza,LAIV4 Live Intrana cece (Flumist) 11/11/2014,11/18/2013 Td (Age >=7 Years) 11/01/2016 Tdap 11/12/2008,05/20/2008 Family History Medical History Relation Name Comments Hypertension Father Cancer-breast Maternal Aunt Other Sister Gluten intolera nce Relation Name Status Comments Father Maternal Aunt Sister Social History Tobacco Use Types Packs/Day Years Used Date Smoking Tobacco: Never Smokeless Tobacco: Never Tobacco Cessation:Counseling Given: Yes Alcohol Use Standard Drinks/Week Comments Yes 0 (1 standard drink = 0.6 oz pur e alcohol) once a week Social Connections Answer Date Recorded Frequency of Communication with Friends and Fami ly Not on file 12/27/2022 Sex and Gender Information Value Date Recorded Sex Assigned at Not on file Gender Identity Not on file Sexual Orientation Not on file Obstetrics History Para Term AB IAB SAB Ectopic Multiple Livin g Live Births 3 2 2 1 1 2 2 Date Outcome GA Total Labor Labor/2nd/3rd Weight Sex Delivery Anes PTL Chari A1 A5 Name Cl in 03/26 SAB 5w0 d SPONTANEO US Dece ased 09/21 Term 40w 2d 2.81 kg (6 lb 3 oz) Vag Epidu ral Ignacia ng 7 8 [place] Delivery Location:[place] 11/19 Term 38w 5d 2.86 kg (6 lb 5 oz) CS-Unspec Liam Baez Comments:breech Last Filed Vital Signs Vital Sign Reading Time Taken Comments Blood Pressure 119/72 12/27/2022 9:14 AM STONE DERRICKMAN AND RIGGER Pulse 81 12/27/2022 9:14 AM STONE DERRICKMAN AND RIGGER Temperature 36.8 ??C (98.2 ??F) 12/27/2022 9:14 AM CS T Respiratory Rate 16 06/02/2015 3:29 PM CDT Oxygen Saturation 97% 12/27/2022 9:14 AM STONE DERRICKMAN AND RIGGER Inhaled Oxygen Concentration - - Weight 62.9 kg (138 lb 9.6 oz) 12/27/2022 9:14 A M STONE DERRICKMAN AND RIGGER Height 157.5 cm (5' 2) 12/27/2022 9:14 AM STONE DERRICKMAN AND RIGGER Body Mass Index 25.35 12/27/2022 9:14 AM STONE DERRICKMAN AND RIGGER Plan of Treatment Health Maintenance Due Date Last Done Comments Pneumococcal series for age 6-64 (1 of 2 - PCV) 1982 Hepatitis C screening for ag e 18-79 1994 Depression screening for age 12+ 05/10/2016 05/11/19 16 Colonoscopy through age 75 2021 Lipids for age 45-75 2021 12/03/2009 Mammogram for age 45-75 2021 COVID-19 vaccine series ( season) 2022 05/31/2020, 05/05/2020 BMI (ht and wt on same day) for age 18+ 12/28/2023 12/27/2022, 05/11/2015 Pap test for age 21-65 11/14/2024 2, 11/14/2021, 04/10/2018, Additional history exists Tetanus booster 11/01/2026 11/01/2016, 1009/2008, 05/20/2008 Tdap Completed 11/12/2008, 05/20/2008 HIV for age 15-65 Completed 05/12/2011, 02/22/2007 Influenza for age 9-49 Completed 3, 12/03/2020, 11/18/2019, Additional history exists Procedures Procedure Name Priority Date/Time Associated Diagnosis Comments THROAT RAPID STREP ONLY CLINIC Routine 12/27/2022 9:16 AM STONE DERRICKMAN AND RIGGER Sore throat from Last 3 Months Results * THROAT RAPID STREP ONLY CLINIC (12/27/2022 9:16 AM STONE DERRICKMAN AND RIGGER) THROAT RAPID STREP A ANTIGEN Negative 12/27/2022 9:29 AM STONE DERRICKMAN AND RIGGER [facility] Throat SPECIMEN FROM THROAT / Unknown Non-Blood / Unknown 12/27/2022 9:16 AM STONE DERRICKMAN AND RIGGER 12/27/2022 9:20 AM STONE DERRICKMAN AND RIGGER Markus Prince MD MICROBIOLOGY [facility] [address] [place] [address], from Last 3 Months Care Teams Communication Spec Relationship Specialty Start Date End Date Pcp, No . PCP - General 08/16/22
== END 2023-03-28 08:49 | disposition home or self-care (01) ==
PROVIDERS: PCP Nurse Practitioner Family; Visit Provider Obstetrics & Gynecology
DX: R10.2 Pelvic and perineal pain (principal); Z13.29 Encounter for screening for other suspected endocrine disorder
CPT/HCPCS: 81513; 84443; 87481; 87491; 87591; 87661

== ENCOUNTER 2023-04-11 11:02 | Outpatient (CLI) | payer BC, SELFPAY ==
--- NOTE | 2023-04-11 11:00 | US_ITS ---
Patient: CHRISTIAN BELLO Facility:?[facility] Patient ID:?[id number] Site Patient ID:?[id number]. Site :?[id number] Study:?US-Pelvis TA/TV Pelvic US-04/11/2023 11:59:28 AM Ordering Physician:Lisa Ugalde Final Report: INDICATION: Right lower quadrant pain COMPARISON: 05/12/2019 TECHNIQUE: 2D esteves scale and color Doppler images were acquired of the pelvis using a transabdominal and transvaginal approach. Power Doppler evaluation of the ovaries also performed. FINDINGS: Sonographic images demonstrate a normal size and smooth outer contour of the uterus. Uterus measures 9.1 cm in length by 4.9 cm in AP diameter by 5.4 cm in transverse dimension. Small incidental nabothian cyst is present in the endocervix. The myometrium has a normal uniform echotexture. The endometrial lining appears normal and measures 12 mm in composite thickness. The right ovary measures 3.6 x 2.1 x 2.0 cm in size and the left ovary measures 3.9 x 2.0 x 3.2 cm. The ovaries demonstrate normal arterial and venous blood flow on color Doppler analysis. Normal power Doppler evaluation of both ovaries. There are no suspicious fluid collections within the cul-de-sac. Trace physiologic free fluid. IMPRESSION: No ovarian torsion is present. No adnexal mass or excess pelvic free fluid. Incidental dominant follicle left ovary measuring 2.3 cm. No uterine fibroid. Dictated by Srikanth Hooker MD @ 04/11/2023 12:35:35 PM Signed by:?Srikanth Hooker MD @04/11/2023 12:35:35 PM (Electronic Signature)
== END 2023-04-11 11:03 | disposition home or self-care (01) ==
LOC: US 11:02
PROVIDERS: PCP Nurse Practitioner Family; Visit Provider Obstetrics & Gynecology
DX: R10.31 Right lower quadrant pain (principal)
CPT/HCPCS: 76830; 76856; 93976

== ENCOUNTER 2024-03-18 09:56 | Outpatient (CLI) | payer BC, SELFPAY ==
--- NOTE | 2024-03-18 10:15 | CRLHL7_ITS ---
For Patients: As a result of the Century Cures Act, medical imaging exams and procedure reports are released immediately into your electronic medical record. You may view this report before your referring provider. If you have questions, please contact your health care provider. INDICATION: Right ovarian cyst follow-up COMPARISON: 04/11/2023 TECHNIQUE: 2D esteves scale and color Doppler images were acquired of the pelvis using a transabdominal and transvaginal approach. FINDINGS: Sonographic images demonstrate a normal size and smooth outer contour of the uterus. Uterus measures 8.7 cm in length by 4.2 cm in AP diameter by 5.3 cm in transverse dimension. The myometrium has a normal uniform echotexture. Small cervical nabothian cysts are incidentally noted. The endometrial lining appears normal and measures 4 mm in composite thickness. The right ovary measures 3.2 x 1.7 x 1.7 cm in size and the left ovary measures 2.7 x 1.5 x 2.2 cm. The ovaries demonstrate normal arterial and venous blood flow on color Doppler analysis. Trace physiologic free fluid. IMPRESSION: No ovarian cyst is present. No suspicious findings. Dictated by Srikanth Hooker MD @ 03/18/2024 11:35:59 AM (Electronically Signed)
== END 2024-03-18 09:57 | disposition home or self-care (01) ==
LOC: US 09:57
PROVIDERS: PCP Family Medicine; Visit Provider Family Medicine
DX: R10.31 Right lower quadrant pain (principal)
CPT/HCPCS: 76830; 76856